=== PATIENT | male | born 1935 | race Caucasian/White ===

== ENCOUNTER → 2016-10-11 | Outpatient (CLI) | payer BC ==
[~2016-10-11] MED LIST: ACET-1256 PO; ASPI81TA28 PO; BIMA0.01 OP; BRIM0.1S OPR; DORZ1SOL6 OPB; FINA5TAB PO; HYDCR1CL TOP; IMD/2 PO; LDDP5 TD; LISI20TA3 PO; MELATAB2 PO; MIRT15TA PO; RMNER16 PO; SILO4CAP PO; TRAM-10 PO; WHEAPOW PO
[2016-10-11 12:07] LABS: BASO % 0.3 %; BASO ABS # 0.02 K/uL (0-0.2); COMPLETE YES; EOS % 1.7 %; IG% 0.6 %; LYMPH % 31.4 %; LYMPH ABS # 2.23 K/uL (1.2-3.4); MEAN CELL VOLUME 98.9 fL (80-100); MEAN CORPUSCULAR HEMOGLOBIN 33.6 pg (25-34); MEAN PLATELET VOLUME 10.6 fL (7.4-10.4); MONO % 9.1 %; NEUT % 56.9 %; PLATELET COUNT 305 K/uL (130-400); RED BLOOD COUNT 4.35 M/uL (4.7-6.1); WHITE BLOOD COUNT 7.11 K/uL (4.8-10.8)
[2016-10-11 12:39] LABS: BLOOD UREA NITROGEN 16 mg/dl (7-18); BUN/CREATININE RATIO 17.8 (10-20); CALCIUM 8.9 mg/dl (8.5-10.1); CARBON DIOXIDE 24 mmol/L (21-32); CHLORIDE 108 mmol/L (98-107); CREATININE 0.88 mg/dl (0.60-1.40); GLUCOSE 88 mg/dl (70-99); POTASSIUM 4.3 mmol/L (3.5-5.1); SODIUM 143 mmol/L (136-145)
== END ==
LOC: C.LABFOXAC 11:05
PROVIDERS: ATTEND Internal Medicine
DX: R41.82 Altered mental status, unspecified (principal)

== ENCOUNTER → 2016-10-14 | Outpatient (CLI) | payer BC ==
[2016-10-14 10:48] LABS: BASO % 0.5 %; BASO ABS # 0.03 K/uL (0-0.2); COMPLETE YES; EOS % 1.3 %; HEMATOCRIT 41.4 % (42-52); IG% 0.5 %; LYMPH % 28.9 %; LYMPH ABS # 1.79 K/uL (1.2-3.4); MEAN CELL VOLUME 99.5 fL (80-100); MEAN CORPUSCULAR HEMOGLOBIN 33.4 pg (25-34); MEAN CORPUSCULAR HGB CONC 33.6 g/dl (32-36); MEAN PLATELET VOLUME 10.5 fL (7.4-10.4); MONO % 8.9 %; NEUT % 59.9 %; PLATELET COUNT 288 K/uL (130-400); RED BLOOD COUNT 4.16 M/uL (4.7-6.1); WHITE BLOOD COUNT 6.19 K/uL (4.8-10.8)
[2016-10-14 11:04] LABS: BLOOD UREA NITROGEN 11 mg/dl (7-18); BUN/CREATININE RATIO 12.1 (10-20); CARBON DIOXIDE 27 mmol/L (21-32); CHLORIDE 108 mmol/L (98-107); CREATININE 0.94 mg/dl (0.60-1.40); GLUCOSE 88 mg/dl (70-99); SODIUM 143 mmol/L (136-145)
[2016-10-14 11:18] LABS: CALCIUM 9.1 mg/dl (8.5-10.1)
== END ==
LOC: C.LABFOXAC 09:00
PROVIDERS: ATTEND Internal Medicine
DX: R41.82 Altered mental status, unspecified (principal)

== ENCOUNTER → 2016-10-30 | Outpatient (CLI) | payer BC | END | disposition home or self-care (01) | LOC: C.LABFOXAC 12:34 | PROVIDERS: ATTEND Nurse Practitioner Family | DX: R19.7 Diarrhea, unspecified (principal) ==

== ENCOUNTER → 2016-11-08 | Outpatient (CLI) | payer BC | LOC: C.LABFOXAC 15:52 | PROVIDERS: ATTEND Internal Medicine | DX: A04.7 Enterocolitis due to Clostridium difficile (principal) ==

== ENCOUNTER → 2016-12-23 | Outpatient (CLI) | payer BC ==
[2016-12-23 13:21] LABS: BASO % 0.2 %; BASO ABS # 0.02 K/uL (0-0.2); COMPLETE YES; EOS % 0.1 %; HEMATOCRIT 46.1 % (42-52); IG% 0.4 %; LYMPH % 9.1 %; MEAN CELL VOLUME 97.3 fL (80-100); MEAN CORPUSCULAR HEMOGLOBIN 31.6 pg (25-34); MEAN CORPUSCULAR HGB CONC 32.5 g/dl (32-36); MEAN PLATELET VOLUME 10.9 fL (7.4-10.4); MONO % 6.7 %; NEUT % 83.5 %; PLATELET COUNT 275 K/uL (130-400); RED BLOOD COUNT 4.74 M/uL (4.7-6.1); WHITE BLOOD COUNT 12.08 K/uL (4.8-10.8)
[2016-12-23 13:34] LABS: BLOOD UREA NITROGEN 15 mg/dl (7-18); BUN/CREATININE RATIO 15.3 (10-20); CALCIUM 9.3 mg/dl (8.5-10.1); CARBON DIOXIDE 26 mmol/L (21-32); CHLORIDE 108 mmol/L (98-107); GLUCOSE 99 mg/dl (70-99); POTASSIUM 3.7 mmol/L (3.5-5.1); SODIUM 141 mmol/L (136-145)
== END ==
LOC: C.LABFOXAC 12:43
PROVIDERS: ATTEND Internal Medicine
DX: R50.9 Fever, unspecified (principal)

== ENCOUNTER → 2017-01-01 | Outpatient (CLI) | payer BC ==
[2017-01-01 10:19] LABS: BASO % 0.8 %; BASO ABS # 0.07 K/uL (0-0.2); COMPLETE YES; EOS % 2.5 %; HEMATOCRIT 42.9 % (42-52); IG% 1.5 %; LYMPH % 30.5 %; LYMPH ABS # 2.76 K/uL (1.2-3.4); MEAN CELL VOLUME 94.7 fL (80-100); MEAN CORPUSCULAR HEMOGLOBIN 33.1 pg (25-34); MEAN PLATELET VOLUME 10.3 fL (7.4-10.4); MONO % 7.4 %; NEUT % 57.3 %; PLATELET COUNT 364 K/uL (130-400); RED BLOOD COUNT 4.53 M/uL (4.7-6.1); WHITE BLOOD COUNT 9.06 K/uL (4.8-10.8)
[2017-01-01 10:23] LABS: BLOOD UREA NITROGEN 17 mg/dl (7-18); CALCIUM 9.1 mg/dl (8.5-10.1); CARBON DIOXIDE 22 mmol/L (21-32); CHLORIDE 109 mmol/L (98-107); GLUCOSE 108 mg/dl (70-99); POTASSIUM 4.4 mmol/L (3.5-5.1); SODIUM 137 mmol/L (136-145)
[2017-01-01 10:26] LABS: ALB/GLOB RATIO 1.1 (0.9-2); ALKALINE PHOSPHATASE 78 U/L (45-117); ALT/SGPT 25 U/L (12-78); AST/SGOT 19 U/L (15-37)
== END ==
LOC: C.LABFOXAC 09:27
PROVIDERS: ATTEND Internal Medicine
DX: R41.82 Altered mental status, unspecified (principal)

== ENCOUNTER 2017-02-02 14:48 | Inpatient (IN) | payer BC, OTHER ==
[~2017-02-02] VITALS: Ht 180.3 cm; Wt 104.3 kg
[~2017-02-02 14:48] MED LIST changes: -ACET-1256 PO; -BRIM0.1S OPR; -HYDCR1CL TOP; -IMD/2 PO; -LDDP5 TD; -MELATAB2 PO; -MIRT15TA PO; -TRAM-10 PO; -WHEAPOW PO
[2017-02-02] MEDS ORDERED: SODIUM CHLORIDE 0.9% 500ML 500 ML IV STA (15:03)
[2017-02-02] MEDS ORDERED: MoRPHine SULFATE 4 MG/ML 1 ML CARP\\VIAL IV STA (15:03)
[2017-02-02] MEDS ORDERED: LIDOCAINE/EPINEPH/TETRACAINE 1 EA SYR EXT STA (15:03)
--- NOTE | 2017-02-02 15:07 | EMERGENCY ROOM VISIT NOTE ---
History Report prepared by Barbara: Felipe Salmon Under the Supervision of: Dr. Kamran Romeo M.D. First contact with patient: 14:49 Chief Complaint: FALL Stated Complaint: FALL History of Present Illness The patient is an 81 year old white male with a past medical history of dementia and aphasia who presents to the ED with a cc of a fall that occurred earlier today. This history is limited secondary to the patient's dementia. Positive favoring of the abdomen. The patient's fall was unwitnessed and the staff is unsure how long he was down. Per the , he has never had a stroke. They are trying to transition him to a wheelchair because he at baseline he has unsteady gait. Source of History: patient, spouse/significant other, EMS History Limited By: dementia Onset: earlier today Position: other (global) Symptom Intensity: mild Quality: other (Fall) Timing: constant Review of Systems See HPI for pertinent positives and negatives. A total of ten systems were reviewed and were otherwise negative. Past Medical & Surgical Medical Problems: (1) Dementia (2) SIRS (systemic inflammatory response syndrome) (3) UTI (urinary tract infection) Family History Patient reports no known family medical history. Social History Smoking Status: Never Smoker Drug Use: none Marital Status: Occupation Status: retired, disabled Current/Historical Medications Scheduled Acetaminophen (Tylenol), 500 MG PO QID Bimatoprost (Lumigan), 1 DROPS OP HS Brimonidine Tartrate (Alphagan P Oph), 1 DROP OPR BID Dorzolamide Hcl-Timolol Maleat (Cosopt Oph), 1 DROPS OPB BID Loperamide Hcl (Imodium), 2 MG PO DIRECTED Melatonin (Melatonin Maximum Strengt), 5 MG PO HS Mirtazapine (Remeron), 15 MG PO HS Tramadol (Ultram), 25 MG PO BID Wheat Dextrin (Benefiber Drink Mix), 2 TSP PO DAILY Scheduled PRN Hydrocortisone 1% (Hydrocortisone 1%), 1 APPLN TOP BID PRN for RASH Allergies Coded Allergies: No Known Allergies (Unverified , 09/29/15) Physical Exam Vital Signs Date Time Temp Pulse Resp B/P (MAP) Pulse Ox O2 Delivery O2 Flow Rate FiO2 02/02/17 17:00 64 18 143/65 98 Room Air 02/02/17 15:02 36.6 56 18 127/60 100 Room Air Physical Exam GENERAL: Awake, alert, well-appearing, NAD HENT: 2 cm extraoral laceration in the middle of the lip. Small laceration to the intraoral area. No septal hematoma. Trace dried blood in the nares. EYES: Normal conjunctiva. Sclera non-icteric. NECK: Supple. No nuchal rigidity. FROM. RESPIRATORY: CTAB, no rhonchi, wheezing, crackles CARDIAC: RRR, no MRG ABDOMEN: Soft, NTND, BS+ MSK: No chest wall TTP, no LE edema. No obvious trauma to the extremities, chest , abdomen, or pelvis. NEURO: Patient has dementia. Baseline unsteady gait. Moves bilateral UE's. Sensation to the LE's. SKIN: No rash or jaundice noted. Medical Decision & Procedures ER Provider Diagnostic Interpretation: Radiology results as stated below per my review and radiologist interpretation: HEAD WITHOUT CONTRAST (CT) CLINICAL HISTORY: 81 years-old Male with s/p fall; ?syncope, 81mg ASA, dementia, . Acute head injury status post fall. TECHNIQUE: Multiple axial CT images of the head were obtained without contrast. A dose lowering technique was utilized adhering to the principles of ALARA. COMPARISON: CT head 09/29/2015. FINDINGS: No acute intracranial hemorrhage, midline shift, mass, large territorial ischemia or abnormal extra-axial collection. There is moderate atrophy with ex vacuo ventriculomegaly. Background chronic microvascular ischemic changes. There are senescent calcifications of the left lentiform nucleus. The calvarium is intact. The mastoid air cells, and middle ear cavities are clear. Mild polypoid mucosal thickening of the inferior left maxillary sinus, partially imaged. IMPRESSION: 1. No acute intracranial abnormality. 2. Senescent changes as above. 3. Mild left maxillary sinus disease is partially imaged. The above report was generated using voice recognition software. It may contain grammatical, syntax or spelling errors. Electronically signed by: Gibran Mary M.D. 02/02/2017 4:31 PM Dictated Date/Time: 02/02/2017 4:28 PM CHEST ONE VIEW PORTABLE HISTORY: 81 years-old Male s/p fall; ?syncope acute fall with syncope. COMPARISON: Chest radiograph 09/29/2015 TECHNIQUE: Semierect AP view of the chest FINDINGS: Cardiac silhouette is upper limits of normal. There is no pneumothorax or pleural effusion. Patchy bibasilar opacities are noted suggesting atelectasis. There is mild right hemidiaphragmatic elevation. There is atherosclerosis of the aorta. Chronic blunting of the costophrenic angles is noted likely secondary to scarring. The bones are grossly intact. Degenerative changes involve the shoulders bilaterally. IMPRESSION: Patchy bibasilar opacities suggest atelectasis. No acute cardiopulmonary process is otherwise identified. The above report was generated using voice recognition software. It may contain grammatical, syntax or spelling errors. Electronically signed by: Gibran Mary M.D. 02/02/2017 3:44 PM Dictated Date/Time: 02/02/2017 3:43 PM CERVICAL SPINE W/O CLINICAL HISTORY: 81 years-old Male with s/p fall; ?syncope, 81mg ASA, dementia, . Acute syncopal event with neck trauma. COMPARISON: CT head and maxillofacial of same day. TECHNIQUE: Multiple axial CT images of the cervical spine were obtained without contrast. A dose lowering technique was utilized adhering to the principles of ALARA. FINDINGS: The bones are mildly demineralized. Advanced degenerative changes are seen at the C1-C2 articulation anteriorly. No acute cervical spine fracture or subluxation is identified. Mastoid air cells and middle ear cavities are clear. Multilevel advanced facet arthropathy and endplate spurring is noted. There are large posterior disc osteophyte complex formations noted at the C5-C6 and C6-C7 levels. At C5-C6 there is moderate central canal and severe bilateral foraminal narrowing. At C6-C7 there is mild central canal, and moderate bilateral foraminal stenosis. The thyroid appears heterogeneous and multinodular. Lung apices are clear. There is mild upper scrotal plaquing of the cerebral vasculature. Mild left maxillary sinus disease. Periapical cyst formation of right maxillary molars. IMPRESSION: 1. No acute cervical spine fracture or subluxation identified. 2. Multilevel severe facet arthropathy noted with large posterior disc osteophyte complex formations at C5-C6 and C6-C7 as above. 3. Right-sided odontogenic disease as above. The above report was generated using voice recognition software. It may contain grammatical, syntax or spelling errors. Electronically signed by: Gibran Mary M.D. 02/02/2017 4:49 PM Dictated Date/Time: 02/02/2017 4:31 PM ABD/PELVIS IV CONTRAST ONLY HISTORY: 81 years-old Male s/p fall; ?syncope, 81mg ASA, favors abdomen when palp acute generalized abdominal pain status post fall with syncopal event. COMPARISON: None available. TECHNIQUE: Multiple axial CT images of the abdomen and pelvis were obtained following the intravenous administration of 116 mL Optiray 320. A dose lowering technique was used consistent with the principals of ALARA. FINDINGS: Study is moderately limited secondary to motion and positioning of the patient's arms. Trace left pleural effusion. Mild dependent left basilar consolidation suggest atelectasis or pneumonia. No pneumoperitoneum. Imaged inferior cardiac chambers are mildly enlarged with coronary arterial calcifications noted. There are multiple circumscribed low attenuating lesions about the liver, largest of which measures 1.6 cm and the left hepatic lobe are nonspecific and suggests cysts. Somewhat linear low attenuating lesion of the posterior right hepatic lobe likely secondary to a cyst with associated motion artifact. Spleen and adrenal glands are within normal limits. Gallbladder is unremarkable. There is moderate diffuse pancreatic atrophy. Kidneys, ureters are unremarkable. The prostate is enlarged with trabeculation of the urinary bladder costello suggesting sequela of chronic bladder outlet obstruction. Prostate measures over 6 mm transversely. Small left hydrocele is noted with apparent left-sided varicocele and fat filled left inguinal hernia. Since of atherosclerosis of the abdominal aorta. No bulky retroperitoneal adenopathy identified. There is no bowel obstruction or focal bowel wall thickening identified. The appendix is not clearly seen. No secondary evidence of acute appendicitis. Soft tissues are unremarkable. The bones are mildly demineralized. Acute mildly displaced fractures are seen within the lateral aspects of the left ninth, 10th and 11th ribs. No compression deformity identified. Severe multilevel facet arthropathy of the lower lumbar spine. IMPRESSION: 1. Acute minimally displaced fractures of the left 9th, 10th and 11th ribs without evidence of acute solid organ injury. No pneumoperitoneum or hemoperitoneum identified. 2. Small left pleural effusion with subsegmental left lower lobe atelectasis or pneumonia. 3. Additional incidental findings as above include prostatomegaly with evidence of chronic bladder outlet obstruction, left hydrocele, left inguinal hernia with probable left varicocele. 4. Multiple low attenuating circumscribed lesions of the liver suggest cysts however are indeterminate on this single phase study. 5. Limited study as above. The above report was generated using voice recognition software. It may contain grammatical, syntax or spelling errors. Electronically signed by: Gibran Mary M.D. 02/02/2017 4:44 PM Dictated Date/Time: 02/02/2017 4:35 PM FACIAL BONES-MXILLOFAC WITHOUT CLINICAL HISTORY: 81 years-old Male presenting with intraoral lac, pain, r/o dental frx or facial frx. Acute intraoral laceration with concern for facial bone or dental fracture. COMPARISON STUDY: CT head and cervical spine of same day TECHNIQUE: High-resolution CT scan of the facial bones is performed. Images are reviewed in the axial, sagittal, and coronal planes. IV contrast was not administered for this examination. A dose lowering technique was utilized adhering to the principles of ALARA. CT DOSE: 1088.91 mGy.cm FINDINGS: Large periapical cysts are noted involving several teeth, notably present within the right second maxillary molar and also within the third right mandibular molar and also within the right mandibular lateral incisor as seen on image 399 of series 5 with adjacent mild cortical erosion. No acute dental fracture identified. Mastoid air cells and middle ear cavities are clear. Foci of air seen within the cavernous sinus and right mandibular tissues on image 62 of series 4. No acute facial bone fracture or dislocation is identified. Mild maxillary and ethmoid sinus disease is noted. Multilevel severe facet arthropathy of the cervical spine. Evaluation of the soft tissues demonstrates soft tissue swelling with subcutaneous emphysema in the premandibular tissues. No opaque foreign body. There is extensive atherosclerotic plaquing of the carotid bulbs. Multinodular goiter. No pneumothorax. IMPRESSION: 1. Soft tissue swelling and laceration of the premental soft tissues. No opaque foreign body, acute facial bone or dental fracture identified. 2. Multifocal odontogenic disease as detailed above with multiple large periapical cysts with areas of adjacent cortical erosion. 3. Air within the cavernous sinus and right mandibular tissues suggests iatrogenic venous air. 4. Multilevel degenerative changes of the cervical spine. The above report was generated using voice recognition software. It may contain grammatical, syntax or spelling errors. Electronically signed by: Gibran Mary M.D. 02/02/2017 4:57 PM Dictated Date/Time: 02/02/2017 4:50 PM Laboratory Results 02/02/17 15:15 Red Blood Count 4.27, Mean Corpuscular Volume 97.0, Mean Corpuscular Hemoglobin 32.6, Mean Corpuscular Hemoglobin Concent 33.6, Mean Platelet Volume 10.4, Neutrophils (%) (Auto) 67.7, Lymphocytes (%) (Auto) 23.9, Monocytes (%) (Auto) 6.1, Eosinophils (%) (Auto) 1.5, Basophils (%) (Auto) 0.2, Neutrophils # (Auto) 5.44, Lymphocytes # (Auto) 1.92, Monocytes # (Auto) 0.49, Eosinophils # (Auto) 0.12, Basophils # (Auto) 0.02 02/02/17 15:15 Test 02/02/17 15:03 02/02/17 15:15 White Blood Count 8.04 K/uL (4.8-10.8) Red Blood Count 4.27 M/uL (4.7-6.1) Hemoglobin 13.9 g/dL (14.0-18.0) Hematocrit 41.4 % (42-52) Mean Corpuscular Volume 97.0 fL (80-100) Mean Corpuscular Hemoglobin 32.6 pg (25-34) Mean Corpuscular Hemoglobin Concent 33.6 g/dl (32-36) Platelet Count 265 K/uL (130-400) Mean Platelet Volume 10.4 fL (7.4-10.4) Neutrophils (%) (Auto) 67.7 % Lymphocytes (%) (Auto) 23.9 % Monocytes (%) (Auto) 6.1 % Eosinophils (%) (Auto) 1.5 % Basophils (%) (Auto) 0.2 % Neutrophils # (Auto) 5.44 K/uL (1.4-6.5) Lymphocytes # (Auto) 1.92 K/uL (1.2-3.4) Monocytes # (Auto) 0.49 K/uL (0.11-0.59) Eosinophils # (Auto) 0.12 K/uL (0-0.5) Basophils # (Auto) 0.02 K/uL (0-0.2) RDW Standard Deviation 48.7 fL (36.4-46.3) RDW Coefficient of Variation 13.7 % (11.5-14.5) Immature Granulocyte % (Auto) 0.6 % Immature Granulocyte # (Auto) 0.05 K/uL (0.00-0.02) Prothrombin Time 12.0 SECONDS (9.0-12.0) Prothromb Time International Ratio 1.1 (0.9-1.1) Activated Partial Thromboplast Time 26.9 SECONDS (21.0-31.0) Partial Thromboplastin Ratio 1.0 Anion Gap 8.0 mmol/L (3-11) Est Creatinine Clear Calc Drug Dose 62.5 ml/min Estimated GFR () 71.6 Estimated GFR (Non- 61.8 BUN/Creatinine Ratio 13.1 (10-20) Calcium Level 8.9 mg/dl (8.5-10.1) Troponin I < 0.015 ng/ml (0-0.045) Laboratory results reviewed by me Medications Administered Medications (Trade) Dose Ordered Sig/Aj Route Start Time Stop Time Status Last Admin Dose Admin Sodium Chloride 500 ml @ 500 mls/hr Q1H STAT IV 02/02/17 15:03 02/02/17 16:02 DC 02/02/17 15:22 500 MLS/HR Morphine Sulfate (MoRPHine SULFATE INJ) 4 mg NOW STAT IV 02/02/17 15:03 02/02/17 15:05 DC 02/02/17 15:26 4 MG Tetracaine/ Epinephrine/ Lidocaine (L.e.t. Gel 4%/ 1:100/0.5%) 1 ea NOW STAT EXT 02/02/17 15:03 02/02/17 15:05 DC 02/02/17 15:22 1 EA Diphtheria/ Pertussis/Tetanus Vacc (Adacel Inj) 0.5 ml ONCE ONCE IM. 02/02/17 15:15 02/02/17 15:16 DC 02/02/17 15:27 0.5 ML Procedure Location: Through the dry cory, and the wet cory Total length: 3 cm Complexity: simple Verbal consent was obtained after the risks and benefits were explained, including but not limited to bleeding, scarring, infection, pain, and bone/joint /nerve damage. At this time, the risks of the procedure are less than the risks of NOT performing the procedure. A time out was taken and the correct patient and site identified. The skin was prepped with betadine. The target area was anesthetized with LET gel. Copious irrigation was performed using normal saline. The skin was re-prepped with betadine and a sterile field set. The wound was explored for foreign bodies and none found. Examination revealed no injury to deep structures such as tendons, bone, or significant blood vessels. Debridement was not performed. The wound edges were approximated using 5, 6-0 fast gut sutures, 3 on the outside, 2 on the inside. Hemostasis and excellent approximation was achieved. Antibacterial ointment and a sterile dressing applied. Detailed wound care instructions and signs and symptoms of infection reviewed with the patient. No complications and the patient tolerated the procedure well. ECG Indication: other (Trauma) Rate (beats per minute): 58 Rhythm: sinus bradycardia Findings: other (Normal intervals, normal axis, no STS changes or t-wave inversions) ED Course 1449: The patient was evaluated in room C9. A complete history and physical exam was performed. 1625: I performed a laceration repair procedure at this time. Please see the procedure note for more information. 1703: Upon reexamination, the patient was resting. I discussed the test results and treatment plan with Dr. Chop[place] of [facility] [place] The patient will be evaluated for further management. Medical Decision Differential diagnosis: Etiologies such as fracture, dislocation, intra-abdominal, pneumothorax, intrathoracic , intracranial, neurologic, as well as other traumatic pathologies were entertained. The patient is an 81 year old white male with a past medical history of dementia and aphasia who presents to the ED with a cc of a fall that occurred earlier today. This history is limited secondary to the patient's dementia. Positive favoring of the abdomen. Patient was seen and evaluated at the bedside. History was limited given the prior history of CVA and dementia and the patient. Patient apparently at baseline per nursing and had a discussion with EMS. Patient does have some mild bleeding to the nares as well as lip with a small laceration. Patient appears to have some abdominal pain. Patient did have blood work, EKG, troponin , UA, and CTs completed along with plain films of the chest. Patient chest x- ray negative. EKG normal limits. Troponin negative. Patient's blood work fairly unremarkable. Patient does suffer from incontinence and appeared at the bedside did not want a cath UA. Patient's CT of the head, C-spine, face were negative. Patient CT abdomen pelvis was negative for acute intra- abdominal abnormality. Patient was noted to have some mildly displaced ninth 10th and 11th rib fractures. Bili pleural effusion with this was not read is hemo thorax. No real effusion or pneumothorax seen on the plain chest film. I did discuss the case with thoracic surgery who agreed to see the patient the morning. Given the patient's demented nature, the concern for adequate pain control, and respiratory status; I spoke with the hospitalist who agreed to admit the patient. Medication Reconcilliation Current Medication List: was personally reviewed by me Blood Pressure Screening Patient's blood pressure: Elevated blood pressure Blood pressure disposition: Elevated BP felt to be situational Consults Time Called: 1700 Consulting Physician: Keysha Bush Returned Call: 1703 Discussed the patient's case. The patient will be evaluated for further treatment and disposition. Impression Primary Impression: Fall Additional Impression: Rib fractures Scribe Attestation The scribe's documentation has been prepared under my direction and personally reviewed by me in its entirety. I confirm that the note above accurately reflects all work, treatment, procedures, and medical decision making performed by me. Departure Information Dispostion Being Evaluated By Hospitalist Referrals Franklin Mott (PCP) Patient Instructions My [facility] Problem Qualifiers Primary Impression: Fall Encounter type: initial encounter Qualified Codes: W19.XXXA - Unspecified fall, initial encounter Additional Impression: Rib fractures Encounter type: initial encounter Rib fracture type: multiple ribs Fracture type: closed Laterality: left Qualified Codes: S22.42XA - Multiple fractures of ribs, left side, initial encounter for closed fracture
[2017-02-02] MEDS ORDERED: DIPHTHERIA/TETANUS/PERTUSSIS 0.5 ML SYR/VIAL IM. ONE (15:15)
[2017-02-02 15:38] LABS: INR 1.1 (0.9-1.1)
--- NOTE | 2017-02-02 15:46 | DIAGNOSTIC IMAGING REPORT ---
CHEST ONE VIEW PORTABLE HISTORY: 81 years-old Male s/p fall; ?syncope acute fall with syncope. COMPARISON: Chest radiograph 09/29/2015 TECHNIQUE: Semierect AP view of the chest FINDINGS: Cardiac silhouette is upper limits of normal. There is no pneumothorax or pleural effusion. Patchy bibasilar opacities are noted suggesting atelectasis. There is mild right hemidiaphragmatic elevation. There is atherosclerosis of the aorta. Chronic blunting of the costophrenic angles is noted likely secondary to scarring. The bones are grossly intact. Degenerative changes involve the shoulders bilaterally. IMPRESSION: Patchy bibasilar opacities suggest atelectasis. No acute cardiopulmonary process is otherwise identified. The above report was generated using voice recognition software. It may contain grammatical, syntax or spelling errors. Electronically signed by: Gibran Mary M.D. 02/02/2017 3:44 PM Dictated Date/Time: 02/02/2017 3:43 PM
[2017-02-02] MEDS ORDERED: TRAM-10 PO (16:07)
[2017-02-02] MEDS ORDERED: MELATAB2 PO (16:07)
[2017-02-02] MEDS ORDERED: IMD/2 PO (16:07)
[2017-02-02] MEDS ORDERED: BRIM0.1S OPR (16:07)
[2017-02-02] MEDS ORDERED: HYDCR1CL TOP (16:07)
[2017-02-02] MEDS ORDERED: WHEAPOW PO (16:07)
[2017-02-02] MEDS ORDERED: ACET-1256 PO (16:07)
[2017-02-02] MEDS ORDERED: MIRT15TA PO (16:07)
[2017-02-02 16:09] LABS: BASO % 0.2 %; BASO ABS # 0.02 K/uL (0-0.2); COMPLETE YES; EOS % 1.5 %; HEMATOCRIT 41.4 % (42-52); IG% 0.6 %; LYMPH % 23.9 %; LYMPH ABS # 1.92 K/uL (1.2-3.4); MEAN CORPUSCULAR HEMOGLOBIN 32.6 pg (25-34); MEAN CORPUSCULAR HGB CONC 33.6 g/dl (32-36); MEAN PLATELET VOLUME 10.4 fL (7.4-10.4); MONO % 6.1 %; NEUT % 67.7 %; PLATELET COUNT 265 K/uL (130-400); RED BLOOD COUNT 4.27 M/uL (4.7-6.1); WHITE BLOOD COUNT 8.04 K/uL (4.8-10.8)
[2017-02-02 16:18] LABS: BUN/CREATININE RATIO 13.1 (10-20); CALCIUM 8.9 mg/dl (8.5-10.1); CREATININE 1.1 mg/dl (0.60-1.40); POTASSIUM 4.4 mmol/L (3.5-5.1)
[2017-02-02] MEDS ORDERED: OPTIRAY 320 IV PRN (16:30)
--- NOTE | 2017-02-02 16:32 | DIAGNOSTIC IMAGING REPORT ---
HEAD WITHOUT CONTRAST (CT) CLINICAL HISTORY: 81 years-old Male with s/p fall; ?syncope, 81mg ASA, dementia, . Acute head injury status post fall. TECHNIQUE: Multiple axial CT images of the head were obtained without contrast. A dose lowering technique was utilized adhering to the principles of ALARA. COMPARISON: CT head 09/29/2015. FINDINGS: No acute intracranial hemorrhage, midline shift, mass, large territorial ischemia or abnormal extra-axial collection. There is moderate atrophy with ex vacuo ventriculomegaly. Background chronic microvascular ischemic changes. There are senescent calcifications of the left lentiform nucleus. The calvarium is intact. The mastoid air cells, and middle ear cavities are clear. Mild polypoid mucosal thickening of the inferior left maxillary sinus, partially imaged. IMPRESSION: 1. No acute intracranial abnormality. 2. Senescent changes as above. 3. Mild left maxillary sinus disease is partially imaged. The above report was generated using voice recognition software. It may contain grammatical, syntax or spelling errors. Electronically signed by: Gibran Mary M.D. 02/02/2017 4:31 PM Dictated Date/Time: 02/02/2017 4:28 PM
--- NOTE | 2017-02-02 16:45 | DIAGNOSTIC IMAGING REPORT ---
ABD/PELVIS IV CONTRAST ONLY HISTORY: 81 years-old Male s/p fall; ?syncope, 81mg ASA, favors abdomen when palp acute generalized abdominal pain status post fall with syncopal event. COMPARISON: None available. TECHNIQUE: Multiple axial CT images of the abdomen and pelvis were obtained following the intravenous administration of 116 mL Optiray 320. A dose lowering technique was used consistent with the principals of ALARA. FINDINGS: Study is moderately limited secondary to motion and positioning of the patient's arms. Trace left pleural effusion. Mild dependent left basilar consolidation suggest atelectasis or pneumonia. No pneumoperitoneum. Imaged inferior cardiac chambers are mildly enlarged with coronary arterial calcifications noted. There are multiple circumscribed low attenuating lesions about the liver, largest of which measures 1.6 cm and the left hepatic lobe are nonspecific and suggests cysts. Somewhat linear low attenuating lesion of the posterior right hepatic lobe likely secondary to a cyst with associated motion artifact. Spleen and adrenal glands are within normal limits. Gallbladder is unremarkable. There is moderate diffuse pancreatic atrophy. Kidneys, ureters are unremarkable. The prostate is enlarged with trabeculation of the urinary bladder costello suggesting sequela of chronic bladder outlet obstruction. Prostate measures over 6 mm transversely. Small left hydrocele is noted with apparent left-sided varicocele and fat filled left inguinal hernia. Since of atherosclerosis of the abdominal aorta. No bulky retroperitoneal adenopathy identified. There is no bowel obstruction or focal bowel wall thickening identified. The appendix is not clearly seen. No secondary evidence of acute appendicitis. Soft tissues are unremarkable. The bones are mildly demineralized. Acute mildly displaced fractures are seen within the lateral aspects of the left ninth, 10th and 11th ribs. No compression deformity identified. Severe multilevel facet arthropathy of the lower lumbar spine. IMPRESSION: 1. Acute minimally displaced fractures of the left 9th, 10th and 11th ribs without evidence of acute solid organ injury. No pneumoperitoneum or hemoperitoneum identified. 2. Small left pleural effusion with subsegmental left lower lobe atelectasis or pneumonia. 3. Additional incidental findings as above include prostatomegaly with evidence of chronic bladder outlet obstruction, left hydrocele, left inguinal hernia with probable left varicocele. 4. Multiple low attenuating circumscribed lesions of the liver suggest cysts however are indeterminate on this single phase study. 5. Limited study as above. The above report was generated using voice recognition software. It may contain grammatical, syntax or spelling errors. Electronically signed by: Gibran Mary M.D. 02/02/2017 4:44 PM Dictated Date/Time: 02/02/2017 4:35 PM
--- NOTE | 2017-02-02 16:51 | DIAGNOSTIC IMAGING REPORT ---
CERVICAL SPINE W/O CLINICAL HISTORY: 81 years-old Male with s/p fall; ?syncope, 81mg ASA, dementia, . Acute syncopal event with neck trauma. COMPARISON: CT head and maxillofacial of same day. TECHNIQUE: Multiple axial CT images of the cervical spine were obtained without contrast. A dose lowering technique was utilized adhering to the principles of ALARA. FINDINGS: The bones are mildly demineralized. Advanced degenerative changes are seen at the C1-C2 articulation anteriorly. No acute cervical spine fracture or subluxation is identified. Mastoid air cells and middle ear cavities are clear. Multilevel advanced facet arthropathy and endplate spurring is noted. There are large posterior disc osteophyte complex formations noted at the C5-C6 and C6-C7 levels. At C5-C6 there is moderate central canal and severe bilateral foraminal narrowing. At C6-C7 there is mild central canal, and moderate bilateral foraminal stenosis. The thyroid appears heterogeneous and multinodular. Lung apices are clear. There is mild upper scrotal plaquing of the cerebral vasculature. Mild left maxillary sinus disease. Periapical cyst formation of right maxillary molars. IMPRESSION: 1. No acute cervical spine fracture or subluxation identified. 2. Multilevel severe facet arthropathy noted with large posterior disc osteophyte complex formations at C5-C6 and C6-C7 as above. 3. Right-sided odontogenic disease as above. The above report was generated using voice recognition software. It may contain grammatical, syntax or spelling errors. Electronically signed by: Gibran Mary M.D. 02/02/2017 4:49 PM Dictated Date/Time: 02/02/2017 4:31 PM
--- NOTE | 2017-02-02 16:59 | DIAGNOSTIC IMAGING REPORT ---
FACIAL BONES-MXILLOFAC WITHOUT CLINICAL HISTORY: 81 years-old Male presenting with intraoral lac, pain, r/o dental frx or facial frx. Acute intraoral laceration with concern for facial bone or dental fracture. COMPARISON STUDY: CT head and cervical spine of same day TECHNIQUE: High-resolution CT scan of the facial bones is performed. Images are reviewed in the axial, sagittal, and coronal planes. IV contrast was not administered for this examination. A dose lowering technique was utilized adhering to the principles of ALARA. CT DOSE: 1088.91 mGy.cm FINDINGS: Large periapical cysts are noted involving several teeth, notably present within the right second maxillary molar and also within the third right mandibular molar and also within the right mandibular lateral incisor as seen on image 399 of series 5 with adjacent mild cortical erosion. No acute dental fracture identified. Mastoid air cells and middle ear cavities are clear. Foci of air seen within the cavernous sinus and right mandibular tissues on image 62 of series 4. No acute facial bone fracture or dislocation is identified. Mild maxillary and ethmoid sinus disease is noted. Multilevel severe facet arthropathy of the cervical spine. Evaluation of the soft tissues demonstrates soft tissue swelling with subcutaneous emphysema in the premandibular tissues. No opaque foreign body. There is extensive atherosclerotic plaquing of the carotid bulbs. Multinodular goiter. No pneumothorax. IMPRESSION: 1. Soft tissue swelling and laceration of the premental soft tissues. No opaque foreign body, acute facial bone or dental fracture identified. 2. Multifocal odontogenic disease as detailed above with multiple large periapical cysts with areas of adjacent cortical erosion. 3. Air within the cavernous sinus and right mandibular tissues suggests iatrogenic venous air. 4. Multilevel degenerative changes of the cervical spine. The above report was generated using voice recognition software. It may contain grammatical, syntax or spelling errors. Electronically signed by: Gibran Mary M.D. 02/02/2017 4:57 PM Dictated Date/Time: 02/02/2017 4:50 PM
[2017-02-02] MEDS ORDERED: HYDROCORTISONE 1% CR 30 GM TUBE EXT PRN (18:00)
[2017-02-02] MEDS ORDERED: LOPERAMIDE HCL 2 MG CAP PO PRN (18:00)
[2017-02-02] MEDS ORDERED: ACETAMINOPHEN 325 MG TAB PO PRN (18:00)
--- NOTE | 2017-02-02 19:19 | History and Physical ---
History & Physical Date & Time of Service: Feb 02, 2017 at 19:02 Chief Complaint: FALL Primary Care Physician: Franklin Mott History of Present Illness Source: spouse, hospital records The patient is not able to contribute to his history of present illness due to his altered mental state. His reports that he has a history of severe dementia and aphasia. She reports that she was called by nursing staff there that he had an unwitnessed fall this morning. Past Medical/Surgical History Medical Problems: (1) Dementia Status: Chronic Family History Patient reports no known family medical history. Social History Smoking Status: Unknown if Ever Smoked Smokeless Tobacco Use: No Alcohol Use: none Drug Use: none Marital Status: Housing status: lives with significant other, fdc Occupational Status: retired, disabled Immunizations History of Influenza Vaccine: Unknown History of Tetanus Vaccine?: Unknown History of Pneumococcal: Unknown History of Hepatitis B Vaccine: Unknown Multi-Drug Resistant Organisms History of MDRO: No Allergies Coded Allergies: No Known Allergies (Unverified , 09/29/15) Home Medications Scheduled Acetaminophen (Tylenol), 500 MG PO QID Bimatoprost (Lumigan), 1 DROPS OP HS Brimonidine Tartrate (Alphagan P Oph), 1 DROP OPR BID Dorzolamide Hcl-Timolol Maleat (Cosopt Oph), 1 DROPS OPB BID Loperamide Hcl (Imodium), 2 MG PO DIRECTED Melatonin (Melatonin Maximum Strengt), 5 MG PO HS Mirtazapine (Remeron), 15 MG PO HS Tramadol (Ultram), 25 MG PO BID Wheat Dextrin (Benefiber Drink Mix), 2 TSP PO DAILY Scheduled PRN Hydrocortisone 1% (Hydrocortisone 1%), 1 APPLN TOP BID PRN for RASH Review of Systems The patient is unable to contribute to his review of systems due to altered mental state. His , who is present, reports that she was called by the nurses at [facility] that the patient had fallen, but this fall had not been witnessed. She reports that he's been in his usual state of poor health up to this time. Physical Exam Vital Signs Date Time Temp Pulse Resp B/P (MAP) Pulse Ox O2 Delivery O2 Flow Rate FiO2 02/02/17 18:56 78 18 169/70 96 Room Air 02/02/17 17:00 64 18 143/65 98 Room Air 02/02/17 15:02 36.6 56 18 127/60 100 Room Air The patient is nonresponsive, has dried blood on nares and lip, lying in bed , intermittently agitated, pulling at blood pressure cuff and lines, but otherwise in no acute distress. HEENT--PERRL, EOMI, mucous membranes and oropharynx dry. Blood as noted above. Neck--supple, no JVD or bruits, thyroid normal, trachea midline, no adenopathy. Heart--tachycardic and regular, no murmurs, rubs or gallops. Lungs--diminished throughout, no respiratory distress, no accessory muscle use. Abdomen--normal bowel sounds and soft, nontender and nondistended, no hernias or masses, no organomegaly. Extremities--no cyanosis, clubbing or edema. There are good distal pulses b/l. Dermatologic--normal skin turgor, normal color, warm and dry, no abnormal lymph nodes, no rash. Neurologic/rheumatologic--cranial nerves II through XII grossly intact, moves all extremities equally well. Psychiatric--nonresponsive, severe dementia. Diagnostics Laboratory Results Results Past 24 Hours Test 02/02/17 15:03 02/02/17 15:15 Range/Units White Blood Count 8.04 4.8-10.8 K/uL Red Blood Count 4.27 4.7-6.1 M/uL Hemoglobin 13.9 14.0-18.0 g/dL Hematocrit 41.4 42-52 % Mean Corpuscular Volume 97.0 80-100 fL Mean Corpuscular Hemoglobin 32.6 25-34 pg Mean Corpuscular Hemoglobin Concent 33.6 32-36 g/dl Platelet Count 265 130-400 K/uL Mean Platelet Volume 10.4 7.4-10.4 fL Neutrophils (%) (Auto) 67.7 % Lymphocytes (%) (Auto) 23.9 % Monocytes (%) (Auto) 6.1 % Eosinophils (%) (Auto) 1.5 % Basophils (%) (Auto) 0.2 % Neutrophils # (Auto) 5.44 1.4-6.5 K/uL Lymphocytes # (Auto) 1.92 1.2-3.4 K/uL Monocytes # (Auto) 0.49 0.11-0.59 K/uL Eosinophils # (Auto) 0.12 0-0.5 K/uL Basophils # (Auto) 0.02 0-0.2 K/uL RDW Standard Deviation 48.7 36.4-46.3 fL RDW Coefficient of Variation 13.7 11.5-14.5 % Immature Granulocyte % (Auto) 0.6 % Immature Granulocyte # (Auto) 0.05 0.00-0.02 K/uL Prothrombin Time 12.0 9.0-12.0 SECONDS Prothromb Time International Ratio 1.1 0.9-1.1 Activated Partial Thromboplast Time 26.9 21.0-31.0 SECONDS Partial Thromboplastin Ratio 1.0 Sodium Level 145 136-145 mmol/L Potassium Level 4.4 3.5-5.1 mmol/L Chloride Level 110 98-107 mmol/L Carbon Dioxide Level 27 21-32 mmol/L Anion Gap 8.0 3-11 mmol/L Blood Urea Nitrogen 14 7-18 mg/dl Creatinine 1.10 0.60-1.40 mg/dl Est Creatinine Clear Calc Drug Dose 62.5 ml/min Estimated GFR () 71.6 Estimated GFR (Non- 61.8 BUN/Creatinine Ratio 13.1 10-20 Random Glucose 119 70-99 mg/dl Calcium Level 8.9 8.5-10.1 mg/dl Troponin I < 0.015 0-0.045 ng/ml Diagnostic Radiology Patient Name: EKATERINA KEMP JR Unit Number: [id number] Dictated: 02/02/171627 Transcribed: 02/02/171627 JRElaine Printed Date/Time: [~ rep prt dt]/[~ rep prt tm] [~ rep ct labl] - [~ rep ct ivnm] [facility] Radiology Department [place], [place] [id number] Dictated: 02/02/171627 Transcribed: 02/02/171627 JRB Printed Date/Time: [~ rep prt dt]/[~ rep prt tm] [~ rep ct labl] - [~ rep ct ivnm] HEAD WITHOUT CONTRAST (CT) CLINICAL HISTORY: 81 years-old Male with s/p fall; ?syncope, 81mg ASA, dementia, . Acute head injury status post fall. TECHNIQUE: Multiple axial CT images of the head were obtained without contrast. A dose lowering technique was utilized adhering to the principles of ALARA. COMPARISON: CT head 09/29/2015. FINDINGS: No acute intracranial hemorrhage, midline shift, mass, large territorial ischemia or abnormal extra-axial collection. There is moderate atrophy with ex vacuo ventriculomegaly. Background chronic microvascular ischemic changes. There are senescent calcifications of the left lentiform nucleus. The calvarium is intact. The mastoid air cells, and middle ear cavities are clear. Mild polypoid mucosal thickening of the inferior left maxillary sinus, partially imaged. IMPRESSION: 1. No acute intracranial abnormality. 2. Senescent changes as above. 3. Mild left maxillary sinus disease is partially imaged. The above report was generated using voice recognition software. It may contain grammatical, syntax or spelling errors. Electronically signed by: Gibran Mary M.D. 02/02/2017 4:31 PM Dictated Date/Time: 02/02/2017 4:28 PM The status of this report is Signed. Draft = Not yet reviewed or approved by Radiologist. Signed = Reviewed and approved by Radiologist. <AttendingPhy></AttendingPhy> <FamilyPhy>[facility]</FamilyPhy> < PrimaryPhy>[facility]</PrimaryPhy> <UnitNumber>[id number]</UnitNumber> < VisitNumber>[id number]</VisitNumber> <PatientName>EKATERINA KEMP Adam BUENROSTRO</ PatientName> <DateOfBirth>1935</DateOfBirth> <Location>[facility]</Location> < ServiceDate>02/02/17</ServiceDate> <MNE>ESINDI</MNE> <OrderingPhy>Kamran Romeo M.D.</OrderingPhy> <OrderingPhyMNE>f rep ord dr mckeon</OrderingPhyMNE> < DictatingPhyMNE>f rep dict dr mckeon</DictatingPhyMNE> <CCListMNE>f rep ct zaidae</ CCListMNE> <AdmittingPhyMNE>f pt admit dr mckeon</AdmittingPhyMNE> <AttendingPhyMNE >f pt attend dr mckeon</AttendingPhyMNE> <ConsultingPhyMNE>f pt consult dr mckeon</ConsultingPhyMNE> <FamilyPhyMNE>f pt fam dr mckeon</FamilyPhyMNE> <OtherPhyMNE>f pt other dr mckeon</OtherPhyMNE> < PrimaryPhyMNE>f pt prim care dr mckeon</PrimaryPhyMNE> <ReferringPhyMNE>f pt referring dr mckeon</ReferringPhyMNE> Patient Name: EKATERINA KEMP JR Unit Number: [id number] Dictated: 02/02/171542 Transcribed: 02/02/171542 JRB Printed Date/Time: [~ rep prt dt]/[~ rep prt tm] [~ rep ct labl] - [~ rep ct ivnm] [facility] [place] [place] [address] Dictated: 02/02/171542 Transcribed: 02/02/171542 JRB Printed Date/Time: [~ rep prt dt]/[~ rep prt tm] [~ rep ct labl] - [~ rep ct ivnm] CHEST ONE VIEW PORTABLE HISTORY: 81 years-old Male s/p fall; ?syncope acute fall with syncope. COMPARISON: Chest radiograph 09/29/2015 TECHNIQUE: Semierect AP view of the chest FINDINGS: Cardiac silhouette is upper limits of normal. There is no pneumothorax or pleural effusion. Patchy bibasilar opacities are noted suggesting atelectasis. There is mild right hemidiaphragmatic elevation. There is atherosclerosis of the aorta. Chronic blunting of the costophrenic angles is noted likely secondary to scarring. The bones are grossly intact. Degenerative changes involve the shoulders bilaterally. IMPRESSION: Patchy bibasilar opacities suggest atelectasis. No acute cardiopulmonary process is otherwise identified. The above report was generated using voice recognition software. It may contain grammatical, syntax or spelling errors. Electronically signed by: Gibran Mary M.D. 02/02/2017 3:44 PM Dictated Date/Time: 02/02/2017 3:43 PM The status of this report is Signed. Draft = Not yet reviewed or approved by Radiologist. Signed = Reviewed and approved by Radiologist. <AttendingPhy></AttendingPhy> <FamilyPhy>Franklin Mott</FamilyPhy> < PrimaryPhy>Franklin Mott</PrimaryPhy> <UnitNumber>[id number]</UnitNumber> < VisitNumber>[id number]</VisitNumber> <PatientName>JUSTOEKTAERINA JR</ PatientName> <DateOfBirth>1935</DateOfBirth> <Location>[facility]</Location> < ServiceDate>02/02/17</ServiceDate> <MNE>ESINDI</MNE> <OrderingPhy>Kamran Romeo M.D.</OrderingPhy> <OrderingPhyMNE>f rep ord dr mckeon</OrderingPhyMNE> < DictatingPhyMNE>f rep dict dr mckeon</DictatingPhyMNE> <CCListMNE>f rep ct mne</ CCListMNE> <AdmittingPhyMNE>f pt admit dr mckeon</AdmittingPhyMNE> <AttendingPhyMNE >f pt attend dr mckeon</AttendingPhyMNE> <ConsultingPhyMNE>f pt consult dr mckeon</ConsultingPhyMNE> <FamilyPhyMNE>f pt fam dr mckeon</FamilyPhyMNE> <OtherPhyMNE>f pt other dr mckeon</OtherPhyMNE> < PrimaryPhyMNE>f pt prim care dr mckeon</PrimaryPhyMNE> <ReferringPhyMNE>f pt referring dr mckeon</ReferringPhyMNE> Patient Name: EKATERINA KEMP JR Unit Number: [id number] Dictated: 02/02/171630 Transcribed: 02/02/171630 JRB Printed Date/Time: [~ rep prt dt]/[~ rep prt tm] [~ rep ct labl] - [~ rep ct ivnm] [facility] [place] [address] Dictated: 02/02/171630 Transcribed: 02/02/171630 JRB Printed Date/Time: [~ rep prt dt]/[~ rep prt tm] [~ rep ct labl] - [~ rep ct ivnm] CERVICAL SPINE W/O CLINICAL HISTORY: 81 years-old Male with s/p fall; ?syncope, 81mg ASA, dementia, . Acute syncopal event with neck trauma. COMPARISON: CT head and maxillofacial of same day. TECHNIQUE: Multiple axial CT images of the cervical spine were obtained without contrast. A dose lowering technique was utilized adhering to the principles of ALARA. FINDINGS: The bones are mildly demineralized. Advanced degenerative changes are seen at the C1-C2 articulation anteriorly. No acute cervical spine fracture or subluxation is identified. Mastoid air cells and middle ear cavities are clear. Multilevel advanced facet arthropathy and endplate spurring is noted. There are large posterior disc osteophyte complex formations noted at the C5-C6 and C6-C7 levels. At C5-C6 there is moderate central canal and severe bilateral foraminal narrowing. At C6-C7 there is mild central canal, and moderate bilateral foraminal stenosis. The thyroid appears heterogeneous and multinodular. Lung apices are clear. There is mild upper scrotal plaquing of the cerebral vasculature. Mild left maxillary sinus disease. Periapical cyst formation of right maxillary molars. IMPRESSION: 1. No acute cervical spine fracture or subluxation identified. 2. Multilevel severe facet arthropathy noted with large posterior disc osteophyte complex formations at C5-C6 and C6-C7 as above. 3. Right-sided odontogenic disease as above. The above report was generated using voice recognition software. It may contain grammatical, syntax or spelling errors. Electronically signed by: Gibran Mary M.D. 02/02/2017 4:49 PM Dictated Date/Time: 02/02/2017 4:31 PM The status of this report is Signed. Draft = Not yet reviewed or approved by Radiologist. Signed = Reviewed and approved by Radiologist. <AttendingPhy></AttendingPhy> <FamilyPhy>[facility]</FamilyPhy> < PrimaryPhy>[facility]</PrimaryPhy> <UnitNumber>[id number]</UnitNumber> < VisitNumber>[id number]</VisitNumber> <PatientName>EKATERINA KEMP JR</ PatientName> <DateOfBirth>1935</DateOfBirth> <Location>[facility]</Location> < ServiceDate>02/02/17</ServiceDate> <MNE>ESINDI</MNE> <OrderingPhy>Kamran Romeo M.D.</OrderingPhy> <OrderingPhyMNE>f rep ord dr mckeon</OrderingPhyMNE> < DictatingPhyMNE>f rep dict dr mckeon</DictatingPhyMNE> <CCListMNE>f rep ct mne</ CCListMNE> <AdmittingPhyMNE>f pt admit dr mckeon</AdmittingPhyMNE> <AttendingPhyMNE >f pt attend dr mckeon</AttendingPhyMNE> <ConsultingPhyMNE>f pt consult dr mckeon</ConsultingPhyMNE> <FamilyPhyMNE>f pt fam dr mckeon</FamilyPhyMNE> <OtherPhyMNE>f pt other dr mckeon</OtherPhyMNE> < PrimaryPhyMNE>f pt prim care dr mckeon</PrimaryPhyMNE> <ReferringPhyMNE>f pt referring dr mckeon</ReferringPhyMNE> Patient Name: EKATERINA KEMP JR Unit Number: [id number] Dictated: 02/02/171634 Transcribed: 02/02/171634 JR Printed Date/Time: [~ rep prt dt]/[~ rep prt tm] [~ rep ct labl] - [~ rep ct ivnm] [facility] [place] [place] [address] Dictated: 02/02/171634 Transcribed: 02/02/171634 JR Printed Date/Time: [~ rep prt dt]/[~ rep prt tm] [~ rep ct labl] - [~ rep ct ivnm] ABD/PELVIS IV CONTRAST ONLY HISTORY: 81 years-old Male s/p fall; ?syncope, 81mg ASA, favors abdomen when palp acute generalized abdominal pain status post fall with syncopal event. COMPARISON: None available. TECHNIQUE: Multiple axial CT images of the abdomen and pelvis were obtained following the intravenous administration of 116 mL Optiray 320. A dose lowering technique was used consistent with the principals of ALARA. FINDINGS: Study is moderately limited secondary to motion and positioning of the patient's arms. Trace left pleural effusion. Mild dependent left basilar consolidation suggest atelectasis or pneumonia. No pneumoperitoneum. Imaged inferior cardiac chambers are mildly enlarged with coronary arterial calcifications noted. There are multiple circumscribed low attenuating lesions about the liver, largest of which measures 1.6 cm and the left hepatic lobe are nonspecific and suggests cysts. Somewhat linear low attenuating lesion of the posterior right hepatic lobe likely secondary to a cyst with associated motion artifact. Spleen and adrenal glands are within normal limits. Gallbladder is unremarkable. There is moderate diffuse pancreatic atrophy. Kidneys, ureters are unremarkable. The prostate is enlarged with trabeculation of the urinary bladder costello suggesting sequela of chronic bladder outlet obstruction. Prostate measures over 6 mm transversely. Small left hydrocele is noted with apparent left-sided varicocele and fat filled left inguinal hernia. Since of atherosclerosis of the abdominal aorta. No bulky retroperitoneal adenopathy identified. There is no bowel obstruction or focal bowel wall thickening identified. The appendix is not clearly seen. No secondary evidence of acute appendicitis. Soft tissues are unremarkable. The bones are mildly demineralized. Acute mildly displaced fractures are seen within the lateral aspects of the left ninth, 10th and 11th ribs. No compression deformity identified. Severe multilevel facet arthropathy of the lower lumbar spine. IMPRESSION: 1. Acute minimally displaced fractures of the left 9th, 10th and 11th ribs without evidence of acute solid organ injury. No pneumoperitoneum or hemoperitoneum identified. 2. Small left pleural effusion with subsegmental left lower lobe atelectasis or pneumonia. 3. Additional incidental findings as above include prostatomegaly with evidence of chronic bladder outlet obstruction, left hydrocele, left inguinal hernia with probable left varicocele. 4. Multiple low attenuating circumscribed lesions of the liver suggest cysts however are indeterminate on this single phase study. 5. Limited study as above. The above report was generated using voice recognition software. It may contain grammatical, syntax or spelling errors. Electronically signed by: Gibran Mary M.D. 02/02/2017 4:44 PM Dictated Date/Time: 02/02/2017 4:35 PM The status of this report is Signed. Draft = Not yet reviewed or approved by Radiologist. Signed = Reviewed and approved by Radiologist. <AttendingPhy></AttendingPhy> <[facility]</Family[facility]> < PrimaryPhy>[facility]</PrimaryPhy> <UnitNumber>[id number]</UnitNumber> < VisitNumber>[id number]</VisitNumber> <PatientName>EKATERINA KEMP </ PatientName> <DateOfBirth>1935</DateOfBirth> <Location>[facility]</Location> < ServiceDate>02/02/17</ServiceDate> <MNE>ESINDI</MNE> <OrderingPhy>Kamran Romeo M.D.</OrderingPhy> <OrderingPhyMNE>f rep ord dr mckeon</OrderingPhyMNE> < DictatingPhyMNE>f rep dict dr mckeon</DictatingPhyMNE> <CCListMNE>f rep ct mne</ CCListMNE> <AdmittingPhyMNE>f pt admit dr mckeon</AdmittingPhyMNE> <AttendingPhyMNE >f pt attend dr mckeon</AttendingPhyMNE> <ConsultingPhyMNE>f pt consult dr mckeon</ConsultingPhyMNE> <FamilyPhyMNE>f pt fam dr mckeon</FamilyPhyMNE> <OtherPhyMNE>f pt other dr mckeon</OtherPhyMNE> < PrimaryPhyMNE>f pt prim care dr mckeon</PrimaryPhyMNE> <ReferringPhyMNE>f pt referring dr mckeon</ReferringPhyMNE> Patient Name: EKATERINA KEMP JR Unit Number: [id number] Dictated: 02/02/171649 Transcribed: 02/02/171649 JRB Printed Date/Time: [~ rep prt dt]/[~ rep prt tm] [~ rep ct labl] - [~ rep ct ivnm] [facility] [place] [address] Dictated: 02/02/171649 Transcribed: 02/02/171649 JRB Printed Date/Time: [~ rep prt dt]/[~ rep prt tm] [~ rep ct labl] - [~ rep ct ivnm] [~ rep ct add3]] FACIAL BONES-MXILLOFAC WITHOUT CLINICAL HISTORY: 81 years-old Male presenting with intraoral lac, pain, r/o dental frx or facial frx. Acute intraoral laceration with concern for facial bone or dental fracture. COMPARISON STUDY: CT head and cervical spine of same day TECHNIQUE: High-resolution CT scan of the facial bones is performed. Images are reviewed in the axial, sagittal, and coronal planes. IV contrast was not administered for this examination. A dose lowering technique was utilized adhering to the principles of ALARA. CT DOSE: 1088.91 mGy.cm FINDINGS: Large periapical cysts are noted involving several teeth, notably present within the right second maxillary molar and also within the third right mandibular molar and also within the right mandibular lateral incisor as seen on image 399 of series 5 with adjacent mild cortical erosion. No acute dental fracture identified. Mastoid air cells and middle ear cavities are clear. Foci of air seen within the cavernous sinus and right mandibular tissues on image 62 of series 4. No acute facial bone fracture or dislocation is identified. Mild maxillary and ethmoid sinus disease is noted. Multilevel severe facet arthropathy of the cervical spine. Evaluation of the soft tissues demonstrates soft tissue swelling with subcutaneous emphysema in the premandibular tissues. No opaque foreign body. There is extensive atherosclerotic plaquing of the carotid bulbs. Multinodular goiter. No pneumothorax. IMPRESSION: 1. Soft tissue swelling and laceration of the premental soft tissues. No opaque foreign body, acute facial bone or dental fracture identified. 2. Multifocal odontogenic disease as detailed above with multiple large periapical cysts with areas of adjacent cortical erosion. 3. Air within the cavernous sinus and right mandibular tissues suggests iatrogenic venous air. 4. Multilevel degenerative changes of the cervical spine. The above report was generated using voice recognition software. It may contain grammatical, syntax or spelling errors. Electronically signed by: Gibran Mary M.D. 02/02/2017 4:57 PM Dictated Date/Time: 02/02/2017 4:50 PM The status of this report is Signed. Draft = Not yet reviewed or approved by Radiologist. Signed = Reviewed and approved by Radiologist. <AttendingPhy></AttendingPhy> <[facility]Phy>[facility]</FamilyPhy> < PrimaryPhy>[facility]</PrimaryPhy> <UnitNumber>[id number]</UnitNumber> < VisitNumber>[id number]</VisitNumber> <PatientName>EKATERINA KEMP JR</ PatientName> <DateOfBirth>1935</DateOfBirth> <Location>[facility]</Location> < ServiceDate>02/02/17</ServiceDate> <MNE>ESINDI</MNE> <OrderingPhy>Kamran Romeo M.D.</OrderingPhy> <OrderingPhyMNE>f rep ord dr mckeon</OrderingPhyMNE> < DictatingPhyMNE>f rep dict dr mckeon</DictatingPhyMNE> <CCListMNE>f rep ct mne</ CCListMNE> <AdmittingPhyMNE>f pt admit dr mckeon</AdmittingPhyMNE> <AttendingPhyMNE >f pt attend dr mckeon</AttendingPhyMNE> <ConsultingPhyMNE>f pt consult dr mckeon</ConsultingPhyMNE> <FamilyPhyMNE>f pt fam dr mckeon</FamilyPhyMNE> <OtherPhyMNE>f pt other dr mckeon</OtherPhyMNE> < PrimaryPhyMNE>f pt prim care dr mckeon</PrimaryPhyMNE> <ReferringPhyMNE>f pt referring dr mckeon</ReferringPhyMNE> Impression Assessment and Plan Severe dementia/aphasia/intermittent agitation-- Continue usual medications: Mirtazapine 15 mg by mouth at bedtime, melatonin 5 mg by mouth at bedtime. Status post fall with left ninth, 10th and 11th rib fractures-- Apply Lidoderm patch every morning. Continue his baseline tramadol. Glaucoma-- Continue usual outpatient medications: Lumigan, Alphagan P, Cosopt. 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 reports that he usually wears diapers. We'll need to coordinate with [place] and how aggressively this has been looked at in the past and possible consult with urology. Multifocal odontogenic disease-- Coordinate with [place] and regarding need for more aggressive treatment. Likely as an outpatient. Multinodular goiter noted on CT-- Check a TSH Level of Care Med/Surg Advanced Directives Existing Advance Directive: Yes Existing Living Will: Yes Existing Power of [place] Joiner: Yes Resuscitation Status DO NOT RESUSCITATE VTE Prophylaxis VTE Risk Assessment Done? Y/N: Yes Risk Level: Moderate Given or contraindicated: SCD's Social Service Consult [place]
[2017-02-02] MEDS: DORZOLAMIDE/TIMOLOL 22.3/6.8MG/ML 10 ML BTL OPB SCH (20:06)
[2017-02-02] MEDS: ACETAMINOPHEN 500 MG TAB PO SCH (20:08)
[2017-02-02] MEDS: TRAMADOL HCL 50 MG TAB PO SCH (20:08)
[2017-02-02 20:33] VITALS: Ht 180.3 cm; Wt 104.3 kg
[2017-02-02] MEDS ORDERED: BIMATOPROST 0.01% OP SOLN 2.5 ML BTL OP SCH (21:00)
[2017-02-02] MEDS ORDERED: MIRTAZAPINE TAB 15 MG TAB PO SCH (21:00)
[2017-02-02] MEDS ORDERED: NON-FORMULARY MEDICATION (Melatonin (Melatonin Maximum Strengt) 5 MG) PO SCH (21:00)
[2017-02-02] MEDS ORDERED: INFLUENZA ADMINISTRATION CHARGE ONE (23:00)
[2017-02-02] MEDS ORDERED: INFLUENZA VACCINE HIGH DOSE 65+ 0.5 ML SYR IM. ONE (23:00)
[2017-02-03] VITALS: O2SAT 96
[2017-02-03 08:00] VITALS: BP 149/56; PULSE 70; TEMP 36.8; O2SAT 95
[2017-02-03 08:16] LABS: BUN/CREATININE RATIO 11.2 (10-20); CALCIUM 8.8 mg/dl (8.5-10.1); CREATININE 0.86 mg/dl (0.60-1.40); MAGNESIUM 1.9 mg/dl (1.8-2.4); POTASSIUM 3.5 mmol/L (3.5-5.1)
[2017-02-03] MEDS: DORZOLAMIDE/TIMOLOL 22.3/6.8MG/ML 10 ML BTL OPB SCH (08:31)
[2017-02-03] MEDS: ACETAMINOPHEN 500 MG TAB PO SCH ×2 (08:34→13:35)
[2017-02-03] MEDS: TRAMADOL HCL 50 MG TAB PO SCH (08:43)
[2017-02-03] MEDS ORDERED: LIDODERM (LIDOCAINE) PATCH 5% TD SCH (09:00)
[2017-02-03] MEDS ORDERED: WHEAT DEXTRIN PO SCH (09:00)
--- NOTE | 2017-02-03 13:14 | Hospitalist Progress Note ---
Hospitalist Progress Note Date of Service Feb 03, 2017. (Melanie Rodriguez PA-C) Subjective Pt evaluation today including: conversation w/ family, physical exam, chart review, lab review, review of studies The patient was seen and examined this afternoon. He appears agitated. I had a long discussion with his on the phone regarding mental status baseline. See A&P. Additional Comments: ROS unobtainable due to altered mental status. (Melanie Rodriguez PA-C) Objective Vital Signs Date Time Temp Pulse Resp B/P (MAP) Pulse Ox O2 Delivery O2 Flow Rate FiO2 02/03/17 08:00 Room Air 02/03/17 08:00 36.8 70 20 149/56 (87) 95 Room Air 02/03/17 00:00 96 Room Air 02/02/17 20:33 Room Air 02/02/17 18:56 78 18 169/70 96 Room Air 02/02/17 17:00 64 18 143/65 98 Room Air 02/02/17 15:02 36.6 56 18 127/60 100 Room Air (Melanie Rodriguez PA-C) Physical Exam General Appearance: + thin, + pertinent finding (aggitated, babbling speech, nonsensical, + multiple abraisons over R arm, bottom lip is split.) Eyes: PERRL, EOMI ENT: hearing grossly normal, + pertinent finding (MM dry, no tongue injury) Neck: supple Respiratory/Chest: lungs clear, normal breath sounds, no accessory muscle use, + pertinent finding (+ lidocaine patch over lefts side ribs, no surrounding ecchymosis) Cardiovascular: regular rate, rhythm, no murmur Abdomen: normal bowel sounds, non tender, soft Extremities: non-tender, no pedal edema, no calf tenderness Neurologic/Psychiatric: alert, + pertinent finding (+agitated, +babbling speech , not oriented. ) Skin: + pertinent finding (Multiple abraisions over R extensor surface.) (Melanie Rodriguez PA-C) Laboratory Results Last 24 Hours Test 02/02/17 15:15 02/03/17 07:28 White Blood Count 8.04 K/uL Red Blood Count 4.27 M/uL Hemoglobin 13.9 g/dL Hematocrit 41.4 % Mean Corpuscular Volume 97.0 fL Mean Corpuscular Hemoglobin 32.6 pg Mean Corpuscular Hemoglobin Concent 33.6 g/dl Platelet Count 265 K/uL Mean Platelet Volume 10.4 fL Neutrophils (%) (Auto) 67.7 % Lymphocytes (%) (Auto) 23.9 % Monocytes (%) (Auto) 6.1 % Eosinophils (%) (Auto) 1.5 % Basophils (%) (Auto) 0.2 % Neutrophils # (Auto) 5.44 K/uL Lymphocytes # (Auto) 1.92 K/uL Monocytes # (Auto) 0.49 K/uL Eosinophils # (Auto) 0.12 K/uL Basophils # (Auto) 0.02 K/uL RDW Standard Deviation 48.7 fL RDW Coefficient of Variation 13.7 % Immature Granulocyte % (Auto) 0.6 % Immature Granulocyte # (Auto) 0.05 K/uL Prothrombin Time 12.0 SECONDS Prothromb Time International Ratio 1.1 Activated Partial Thromboplast Time 26.9 SECONDS Partial Thromboplastin Ratio 1.0 Sodium Level 145 mmol/L 142 mmol/L Potassium Level 4.4 mmol/L 3.5 mmol/L Chloride Level 110 mmol/L 111 mmol/L Carbon Dioxide Level 27 mmol/L 24 mmol/L Anion Gap 8.0 mmol/L 7.0 mmol/L Blood Urea Nitrogen 14 mg/dl 10 mg/dl Creatinine 1.10 mg/dl 0.86 mg/dl Est Creatinine Clear Calc Drug Dose 62.5 ml/min 80.0 ml/min Estimated GFR () 71.6 92.9 Estimated GFR (Non- 61.8 80.2 BUN/Creatinine Ratio 13.1 11.2 Random Glucose 119 mg/dl 110 mg/dl Calcium Level 8.9 mg/dl 8.8 mg/dl Troponin I < 0.015 ng/ml Thyroid Stimulating Hormone (TSH) 0.811 uIu/ml Magnesium Level 1.9 mg/dl Total Creatine Kinase 400 U/L Vitamin B12 Level 486 pg/mL (Melanie Rodriguez, ASHWIN) Assessment and Plan 81 yo M Severe dementia/aphasia/intermittent agitation-- - Continue usual medications: Mirtazapine 15 mg by mouth at bedtime, melatonin 5 mg by mouth QHS although this is not available in house. - If stays overnight will order haldol IV 5 mg prn for aggitation, but hopefully will be able to discharge back to [facility]. - was called and discussion held regarding pts baseline status. She reports over 6 years of worsening dementia. Pt was moved to [facility] in August due to not sleeping through the night, he is awake most of the time, and takes a few naps during the day. His aggitation worsens when he is not in a familiar environment. She reports he has difficulty word finding at baseline. Status post fall with left ninth, 10th and 11th rib fractures-- - Thoracic surgery not formally consulted- repeat CXR obtained, no changes on repeat identified, no pneumothorax. - Apply Lidoderm patch every morning- - Continue his baseline tramadol 25 mg Qpm and QHS, can consider increasing tramadol to 50 mg BID. Lower lip laceration - Extended through the cory. Sutures in place. - Will change diet to mechanical for now, advance as laceration heals. 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 UCx not obtained. - reports that he usually wears diapers due to incontinence. - Can follow up with urology as an outpatient. Multifocal odontogenic disease-- Coordinate with [facility] and regarding need for more aggressive treatment. Likely as an outpatient. Multinodular goiter noted on CT- - TSH is 0.811 CODE STATUS: DNR Disposition: From [facility], discharge likely today. (Melanie Rodriguez, PAEddie) Reviewed: Pt Seen/Exam by Me (Hannah Johnson MD) History See discharge summary on same DOS (Hannah Johnson MD)
--- NOTE | 2017-02-03 13:36 | DIAGNOSTIC IMAGING REPORT ---
L RIBS UNILATERAL WITH PA CHEST HISTORY: 81 years-old Male left sided rib fractures, interval change left rib fractures. Follow-up study to assess change. COMPARISON: CT abdomen and pelvis 02/02/2017, chest radiograph 02/02/2017 TECHNIQUE: Frontal view of the chest with 4 views of the left ribs FINDINGS: Cardiac silhouette is upper limits of normal. No pneumothorax, pleural effusion or focal airspace consolidation. There is mild right hemidiaphragmatic elevation. Linear subsegmental bibasilar opacities are redemonstrated suggesting atelectasis. Bones are mildly demineralized. There is no significant change identified involving the acute fractures of the left ninth, 10th and 11th ribs. IMPRESSION: 1. Subsegmental bibasilar atelectasis without acute cardiopulmonary process. No pneumothorax. 2. Unchanged appearance of the acute left 9th, 10th and 11th rib fractures The above report was generated using voice recognition software. It may contain grammatical, syntax or spelling errors. Electronically signed by: Gibran Mary M.D. 02/03/2017 1:35 PM Dictated Date/Time: 02/03/2017 1:31 PM
[2017-02-03] MEDS ORDERED: LDDP5 TD (15:15)
--- NOTE | 2017-02-03 15:23 | Discharge Instructions ---
Discharge Instructions Date of Service Feb 03, 2017. Admission Reason for Admission: Rib Fractures Discharge Discharge Diagnosis / Problem: Left sided rib fractures,lip laceration, fall Discharge Goals Goal(s): Decrease discomfort, Improve function, Increase independence, Improve disease control Activity Recommendations Activity Level: Ambulates in room, Assistance Required Therapies: Physical Therapy, Occupational Therapy Lifting Limitations: gradually increase as tolerated Exercise/Sports Limitations: gradually increase as tolerated Shower/Bathe: no limitations (with assistance) . Additional Information Patient informed of condition: Yes Advance Directives: No DNR: Yes Level of Care: Skilled Communicable Disease: No Prognosis: Stable Oxygen at (LPM): N/A Steen Catheter: No Instructions / Follow-Up Instructions / Follow-Up You were admitted to [facility] with fall and left sided rib fractures. During your stay here you were treated with pain management and other supportive care. Imaging studies which were completed include CXR which was abnormal showing fractures on the left 9th, 10th, and 11th ribs. Repeat CXR was unchanged and no pneumothorax or hemothorax CT of the head was normal. CT of the abdomen and pelvis showed enlarged prostate - although bladder scan indicated no urinary retention Encourage deep breaths and incentive spirometry if cooperative. Lip laceration was fixed in the ER. These sutures will dissolve and do not need to be removed. Medications: Lidocaine patch has been prescribed for adequate pain control Continue tramadol 25 mg BID, discuss with physician there if pain appears to be uncontrolled. May increase tramadol to 50 mg BID if needed for adequate pain relief. Appointments: Follow up with your Primary Care Provider within 24-48 hours of arrival to [facility]. Current Hospital Diet Patient's current hospital diet: Regular Diet Discharge Diet Recommended Diet: Regular Diet Diet Texture: Dental Soft (bite-sized) (until lip laceration healed) Procedures Procedures Performed: Chest and rib xrays CT Head CT Cervical SPine CT Abdomen/pelvis Pending Studies Studies pending at discharge: no Physician Orders On Transfer Special Precautions: Fall risk Dressing Changes: No dressing but wound care of lower lip laceration IV Therapy: None Vital Signs: Routine Weigh: Routine POLST Discussion: Not Applicable Laboratory Results Last 24 Hours Test 02/03/17 07:28 Sodium Level 142 mmol/L Potassium Level 3.5 mmol/L Chloride Level 111 mmol/L Carbon Dioxide Level 24 mmol/L Anion Gap 7.0 mmol/L Blood Urea Nitrogen 10 mg/dl Creatinine 0.86 mg/dl Est Creatinine Clear Calc Drug Dose 80.0 ml/min Estimated GFR () 92.9 Estimated GFR (Non- 80.2 BUN/Creatinine Ratio 11.2 Random Glucose 110 mg/dl Calcium Level 8.8 mg/dl Magnesium Level 1.9 mg/dl Total Creatine Kinase 400 U/L Vitamin B12 Level 486 pg/mL Medical Emergencies . Who to Call and When: Medical Emergencies: If at any time you feel your situation is an emergency, please call 911 immediately. . Non-Emergent Contact Non-Emergency issues call your: Primary Care Provider Call Non-Emergent contact if: you have a fever, temperature is above 100.5, your pain is not controlled, your pain is worsening, you have any medication questions other concerns with your health. Call 911 or go directly to the Emergency Department if you experience any of the following: Chest pain, chest tightness, shortness of breath, abdominal pain , lightheadedness, dizziness, gastrointestinal bleeding, or have any other concerns regarding your health. . Past History Medical & Surgical History: (1) Rib fractures (2) Dementia (3) Fall . "Provider Documentation" section prepared by Maribel Rodriguez. . Core Measure Problem Core Measures: None
--- NOTE | 2017-02-03 15:31 | Discharge Summary ---
Discharge Summary Date of Service Feb 03, 2017. (Melanie Rodriguez PA-C) Discharge Summary Admission Date: Feb 02, 2017 at 18:00 Discharge Date: Feb 03, 2017 Discharge Disposition: senior care facility ([facility]) Principal Diagnosis: Left Rib fractures Problems/Secondary Diagnoses: Severe dementia/aphasia/intermittent agitation Left rib fractures Multinodular thyroid - normal TSH BPH Multifocal odontogenic disease Glaucoma Immunizations: Have You Had Influenza Vaccine: Unknown History of Tetanus Vaccine?: Unknown History of Pneumococcal: Unknown History of Hepatitis B Vaccine: Unknown Procedures: HEAD WITHOUT CONTRAST (CT) CLINICAL HISTORY: 81 years-old Male with s/p fall; ?syncope, 81mg ASA, dementia, . Acute head injury status post fall. TECHNIQUE: Multiple axial CT images of the head were obtained without contrast. A dose lowering technique was utilized adhering to the principles of ALARA. COMPARISON: CT head 09/29/2015. FINDINGS: No acute intracranial hemorrhage, midline shift, mass, large territorial ischemia or abnormal extra-axial collection. There is moderate atrophy with ex vacuo ventriculomegaly. Background chronic microvascular ischemic changes. There are senescent calcifications of the left lentiform nucleus. The calvarium is intact. The mastoid air cells, and middle ear cavities are clear. Mild polypoid mucosal thickening of the inferior left maxillary sinus, partially imaged. IMPRESSION: 1. No acute intracranial abnormality. 2. Senescent changes as above. 3. Mild left maxillary sinus disease is partially imaged. The above report was generated using voice recognition software. It may contain grammatical, syntax or spelling errors. Electronically signed by: Gibran Mary M.D. 02/02/2017 4:31 PM Dictated Date/Time: 02/02/2017 4:28 PM The status of this report is Signed. CHEST ONE VIEW PORTABLE HISTORY: 81 years-old Male s/p fall; ?syncope acute fall with syncope. COMPARISON: Chest radiograph 09/29/2015 TECHNIQUE: Semierect AP view of the chest FINDINGS: Cardiac silhouette is upper limits of normal. There is no pneumothorax or pleural effusion. Patchy bibasilar opacities are noted suggesting atelectasis. There is mild right hemidiaphragmatic elevation. There is atherosclerosis of the aorta. Chronic blunting of the costophrenic angles is noted likely secondary to scarring. The bones are grossly intact. Degenerative changes involve the shoulders bilaterally. IMPRESSION: Patchy bibasilar opacities suggest atelectasis. No acute cardiopulmonary process is otherwise identified. The above report was generated using voice recognition software. It may contain grammatical, syntax or spelling errors. Electronically signed by: Gibran Mary M.D. 02/02/2017 3:44 PM Dictated Date/Time: 02/02/2017 3:43 PM The status of this report is Signed. CERVICAL SPINE W/O CLINICAL HISTORY: 81 years-old Male with s/p fall; ?syncope, 81mg ASA, dementia, . Acute syncopal event with neck trauma. COMPARISON: CT head and maxillofacial of same day. TECHNIQUE: Multiple axial CT images of the cervical spine were obtained without contrast. A dose lowering technique was utilized adhering to the principles of ALARA. FINDINGS: The bones are mildly demineralized. Advanced degenerative changes are seen at the C1-C2 articulation anteriorly. No acute cervical spine fracture or subluxation is identified. Mastoid air cells and middle ear cavities are clear. Multilevel advanced facet arthropathy and endplate spurring is noted. There are large posterior disc osteophyte complex formations noted at the C5-C6 and C6-C7 levels. At C5-C6 there is moderate central canal and severe bilateral foraminal narrowing. At C6-C7 there is mild central canal, and moderate bilateral foraminal stenosis. The thyroid appears heterogeneous and multinodular. Lung apices are clear. There is mild upper scrotal plaquing of the cerebral vasculature. Mild left maxillary sinus disease. Periapical cyst formation of right maxillary molars. IMPRESSION: 1. No acute cervical spine fracture or subluxation identified. 2. Multilevel severe facet arthropathy noted with large posterior disc osteophyte complex formations at C5-C6 and C6-C7 as above. 3. Right-sided odontogenic disease as above. The above report was generated using voice recognition software. It may contain grammatical, syntax or spelling errors. Electronically signed by: Gibran Mary M.D. 02/02/2017 4:49 PM Dictated Date/Time: 02/02/2017 4:31 PM The status of this report is Signed. ABD/PELVIS IV CONTRAST ONLY HISTORY: 81 years-old Male s/p fall; ?syncope, 81mg ASA, favors abdomen when palp acute generalized abdominal pain status post fall with syncopal event. COMPARISON: None available. TECHNIQUE: Multiple axial CT images of the abdomen and pelvis were obtained following the intravenous administration of 116 mL Optiray 320. A dose lowering technique was used consistent with the principals of YOLANDE. FINDINGS: Study is moderately limited secondary to motion and positioning of the patient's arms. Trace left pleural effusion. Mild dependent left basilar consolidation suggest atelectasis or pneumonia. No pneumoperitoneum. Imaged inferior cardiac chambers are mildly enlarged with coronary arterial calcifications noted. There are multiple circumscribed low attenuating lesions about the liver, largest of which measures 1.6 cm and the left hepatic lobe are nonspecific and suggests cysts. Somewhat linear low attenuating lesion of the posterior right hepatic lobe likely secondary to a cyst with associated motion artifact. Spleen and adrenal glands are within normal limits. Gallbladder is unremarkable. There is moderate diffuse pancreatic atrophy. Kidneys, ureters are unremarkable. The prostate is enlarged with trabeculation of the urinary bladder costello suggesting sequela of chronic bladder outlet obstruction. Prostate measures over 6 mm transversely. Small left hydrocele is noted with apparent left-sided varicocele and fat filled left inguinal hernia. Since of atherosclerosis of the abdominal aorta. No bulky retroperitoneal adenopathy identified. There is no bowel obstruction or focal bowel wall thickening identified. The appendix is not clearly seen. No secondary evidence of acute appendicitis. Soft tissues are unremarkable. The bones are mildly demineralized. Acute mildly displaced fractures are seen within the lateral aspects of the left ninth, 10th and 11th ribs. No compression deformity identified. Severe multilevel facet arthropathy of the lower lumbar spine. IMPRESSION: 1. Acute minimally displaced fractures of the left 9th, 10th and 11th ribs without evidence of acute solid organ injury. No pneumoperitoneum or hemoperitoneum identified. 2. Small left pleural effusion with subsegmental left lower lobe atelectasis or pneumonia. 3. Additional incidental findings as above include prostatomegaly with evidence of chronic bladder outlet obstruction, left hydrocele, left inguinal hernia with probable left varicocele. 4. Multiple low attenuating circumscribed lesions of the liver suggest cysts however are indeterminate on this single phase study. 5. Limited study as above. The above report was generated using voice recognition software. It may contain grammatical, syntax or spelling errors. Electronically signed by: Gibran Mary M.D. 02/02/2017 4:44 PM Dictated Date/Time: 02/02/2017 4:35 PM The status of this report is Signed. FACIAL BONES-MXILLOFAC WITHOUT CLINICAL HISTORY: 81 years-old Male presenting with intraoral lac, pain, r/o dental frx or facial frx. Acute intraoral laceration with concern for facial bone or dental fracture. COMPARISON STUDY: CT head and cervical spine of same day TECHNIQUE: High-resolution CT scan of the facial bones is performed. Images are reviewed in the axial, sagittal, and coronal planes. IV contrast was not administered for this examination. A dose lowering technique was utilized adhering to the principles of ALARA. CT DOSE: 1088.91 mGy.cm FINDINGS: Large periapical cysts are noted involving several teeth, notably present within the right second maxillary molar and also within the third right mandibular molar and also within the right mandibular lateral incisor as seen on image 399 of series 5 with adjacent mild cortical erosion. No acute dental fracture identified. Mastoid air cells and middle ear cavities are clear. Foci of air seen within the cavernous sinus and right mandibular tissues on image 62 of series 4. No acute facial bone fracture or dislocation is identified. Mild maxillary and ethmoid sinus disease is noted. Multilevel severe facet arthropathy of the cervical spine. Evaluation of the soft tissues demonstrates soft tissue swelling with subcutaneous emphysema in the premandibular tissues. No opaque foreign body. There is extensive atherosclerotic plaquing of the carotid bulbs. Multinodular goiter. No pneumothorax. IMPRESSION: 1. Soft tissue swelling and laceration of the premental soft tissues. No opaque foreign body, acute facial bone or dental fracture identified. 2. Multifocal odontogenic disease as detailed above with multiple large periapical cysts with areas of adjacent cortical erosion. 3. Air within the cavernous sinus and right mandibular tissues suggests iatrogenic venous air. 4. Multilevel degenerative changes of the cervical spine. The above report was generated using voice recognition software. It may contain grammatical, syntax or spelling errors. Electronically signed by: Gibran Mary M.D. 02/02/2017 4:57 PM Dictated Date/Time: 02/02/2017 4:50 PM The status of this report is Signed. L RIBS UNILATERAL WITH PA CHEST HISTORY: 81 years-old Male left sided rib fractures, interval change left rib fractures. Follow-up study to assess change. COMPARISON: CT abdomen and pelvis 02/02/2017, chest radiograph 02/02/2017 TECHNIQUE: Frontal view of the chest with 4 views of the left ribs FINDINGS: Cardiac silhouette is upper limits of normal. No pneumothorax, pleural effusion or focal airspace consolidation. There is mild right hemidiaphragmatic elevation. Linear subsegmental bibasilar opacities are redemonstrated suggesting atelectasis. Bones are mildly demineralized. There is no significant change identified involving the acute fractures of the left ninth, 10th and 11th ribs. IMPRESSION: 1. Subsegmental bibasilar atelectasis without acute cardiopulmonary process. No pneumothorax. 2. Unchanged appearance of the acute left 9th, 10th and 11th rib fractures The above report was generated using voice recognition software. It may contain grammatical, syntax or spelling errors. Electronically signed by: Gibran Mary M.D. 02/03/2017 1:35 PM Dictated Date/Time: 02/03/2017 1:31 PM The status of this report is Signed. Consultations: None (Melanie Rodriguez, ASHWIN) Medication Reconciliation New Medications: Lidocaine (Lidocaine) 1 Patch Tdsy 1 PATCH TD QAM for 30 Days, #30 PATCH Continued Medications: Acetaminophen (Tylenol) 500 Mg Tab 500 MG PO QID Bimatoprost (Lumigan) 0.01 % Karla 1 DROPS OP HS for 30 Days, #2.5 ML 3 Refills Brimonidine Tartrate (Alphagan P Oph) 0.1 % Karla 1 DROP OPR BID Dorzolamide Hcl-Timolol Maleat (Cosopt Oph) 1 Karla Karla 1 DROPS OPB BID, #10 ML 3 Refills Hydrocortisone 1% (Hydrocortisone 1%) 90 Appln/30 Gm Cr 1 APPLN TOP BID PRN for RASH Loperamide Hcl (Imodium) 2 Mg Cap 2 MG PO DIRECTED GIVE FOR LOOSE STOOLS MAX 4 CAPS/24 HRS Melatonin (Melatonin Maximum Strengt) 5 Mg Tab 5 MG PO HS Mirtazapine (Remeron) 15 Mg Tab 15 MG PO HS Tramadol (Ultram) 50 Mg Tab 25 MG PO BID 1/2 TABLET DOSE WITH EVENING MEAL & AT BEDTIME Wheat Dextrin (Benefiber Drink Mix) 1 Pow Pow 2 TSP PO DAILY Discharge Exam Subjective Pt evaluation today including: conversation w/ family, physical exam, chart review, lab review, review of studies The patient was seen and examined this afternoon. He appears agitated. I had a long discussion with his on the phone regarding mental status baseline. See A&P. Additional Comments: ROS unobtainable due to altered mental status. Objective Vital Signs Date Time Temp Pulse Resp B/P (MAP) Pulse Ox O2 Delivery O2 Flow Rate FiO2 02/03/17 08:00 Room Air 02/03/17 08:00 36.8 70 20 149/56 (87) 95 Room Air 02/03/17 00:00 96 Room Air 02/02/17 20:33 Room Air 02/02/17 18:56 78 18 169/70 96 Room Air 02/02/17 17:00 64 18 143/65 98 Room Air 02/02/17 15:02 36.6 56 18 127/60 100 Room Air Physical Exam General Appearance: + thin, + pertinent finding (aggitated, babbling speech, nonsensical, + multiple abraisons over R arm, bottom lip is split.) Eyes: PERRL, EOMI ENT: hearing grossly normal, + pertinent finding (MM dry, no tongue injury) Neck: supple Respiratory/Chest: lungs clear, normal breath sounds, no accessory muscle use, + pertinent finding (+ lidocaine patch over lefts side ribs, no surrounding ecchymosis) Cardiovascular: regular rate, rhythm, no murmur Abdomen: normal bowel sounds, non tender, soft Extremities: non-tender, no pedal edema, no calf tenderness Neurologic/Psychiatric: alert, + pertinent finding (+agitated, +babbling speech , not oriented. ) Skin: + pertinent finding (Multiple abraisions over R extensor surface.) (Melanie Rodriguez, ASHWIN) Hospital Course History of Present Illness Source: spouse, hospital records The patient is not able to contribute to his history of present illness due to his altered mental state. His reports that he has a history of severe dementia and aphasia. She reports that she was called by nursing staff there that he had an unwitnessed fall this morning. Physical Exam Vital Signs Date Time Temp Pulse Resp B/P (MAP) Pulse Ox O2 Delivery O2 Flow Rate FiO2 02/02/17 18:56 78 18 169/70 96 Room Air 02/02/17 17:00 64 18 143/65 98 Room Air 02/02/17 15:02 36.6 56 18 127/60 100 Room Air The patient is nonresponsive, has dried blood on nares and lip, lying in bed , intermittently agitated, pulling at blood pressure cuff and lines, but otherwise in no acute distress. HEENT--PERRL, EOMI, mucous membranes and oropharynx dry. Blood as noted above. Neck--supple, no JVD or bruits, thyroid normal, trachea midline, no adenopathy. Heart--tachycardic and regular, no murmurs, rubs or gallops. Lungs--diminished throughout, no respiratory distress, no accessory muscle use. Abdomen--normal bowel sounds and soft, nontender and nondistended, no hernias or masses, no organomegaly. Extremities--no cyanosis, clubbing or edema. There are good distal pulses b/l. Dermatologic--normal skin turgor, normal color, warm and dry, no abnormal lymph nodes, no rash. Neurologic/rheumatologic--cranial nerves II through XII grossly intact, moves all extremities equally well. Psychiatric--nonresponsive, severe dementia. Hospital Course: 81 yo M Severe dementia/aphasia/intermittent agitation-- - Continue usual medications: Mirtazapine 15 mg by mouth at bedtime, melatonin 5 mg by mouth QHS although this is not available in house. - If stays overnight will order haldol IV 5 mg prn for aggitation, but hopefully will be able to discharge back to [facility]. - was called and discussion held regarding pts baseline status. She reports over 6 years of worsening dementia. Pt was moved to [facility] in August due to not sleeping through the night, he is awake most of the time, and takes a few naps during the day. His aggitation worsens when he is not in a familiar environment. She reports he has difficulty word finding at baseline. Status post fall with left ninth, 10th and 11th rib fractures-- - Thoracic surgery not formally consulted- repeat CXR obtained, no changes on repeat identified, no pneumothorax. - Apply Lidoderm patch every morning- Rx provided at time of dc - Continue his baseline tramadol 25 mg Qpm and QHS, can consider increasing tramadol to 50 mg BID. Lower lip laceration - Extended through the cory. Sutures in place. - Will change diet to mechanical for now, advance as laceration heals. Glaucoma- - Continue usual outpatient medications: Lumigan, Alphagan P, Cosopt BPH without outlet obstruction - Reviewed on CT - will check bladder scan and make sure not retaining- only 88mL on bladder scan . UCx not obtained. - reports that he usually wears diapers due to incontinence. - Can follow up with urology as an outpatient. Multifocal odontogenic disease-- Coordinate with [facility] and regarding need for more aggressive treatment. Likely as an outpatient. Multinodular goiter noted on CT- - TSH is 0.811 CODE STATUS: DNR Disposition: From [facility], discharge today. Total Time Spent: Greater than 30 minutes This includes examination of the patient, discharge planning, medication reconciliation, and communication with other providers. (Melanie Rodriguez, ASHWIN) Discharge Instructions Please refer to the electronic Patient Visit Report (Discharge Instructions) for additional information. (Melanie Rodriguez, ASHWIN) Follow-Up Follow up with your Primary Care Provider at [facility] within 24-48 hours. (Melanie Rodriguez, ASHWIN) Additional Copies To [facility] Reviewed: Pt Seen/Exam by Me (Hannah Johnson MD) History Physician [employer] Supplier Supervision Note: I interviewed and examined the patient. Discussed with MONET Rodriguez and agree with findings and plan as documented in the note. Any exceptions or clarifications are listed here: Pt with aphasia and answered questions. Aid reports he had agitation significnatly with turning him to get him cleaned up which may indicate pain when turned on left side where rib fractures are. Otherwise vitals good, labs good, repeat CXR/Rib series no PTX or worsening effusion suggestive of hemothorax. Stable for dc to home Vitals reviewed NAD, sleeping but hten wakes up and nonverbal Bottom lip with sutured lac crossing cory, mild edema of lower lip RRR no mgr CTAB no wcr ABd +BS soft NT ND Ext no edema LEs, right forearm with superficial abrasions and small hematoma 81 yo male with severe dementia, here with likely mechanical fall unwitnessed, with resulting left sided multiple rib fractures. Stable, pain control as per PA note, PT/OT, return to SNF dementia unit which will suit him better to be in familiar surroundings -no need to check UA as difficult to tell is has any symptoms of UTI and would likely be treating asymptomatic bacteriuria which in itself leads to potential injury Documented By: Hannah Johnson (Hannah Johnson MD)
[2017-02-03] MEDS ORDERED: TRAM-10 PO (16:07)
[2017-02-03 16:22] VITALS: BP 149/56; PULSE 70; TEMP 36.8; O2SAT 95
== END 2017-02-03 18:51 | DRG 184 ==
LOC: EDBD 14:48 → C.EDC 14:50 → C.MS2W 18:00 → ENRESERV 18:43
PROVIDERS: ADMIT Hospitalist; ATTEND Internal Medicine
PROC: 0CQ1XZZ Repair Lower Lip, External Approach (ICD-10-PCS; principal; 2017-02-02)
DX: S22.42XA Multiple fractures of ribs, left side, initial encounter for closed fracture (principal); J90 Pleural effusion, not elsewhere classified; R47.01 Aphasia; S01.511A Laceration without foreign body of lip, initial encounter; F03.90 Unspecified dementia, unspecified severity, without behavioral disturbance, psychotic disturbance, mood disturbance, and anxiety; W19.XXXA Unspecified fall, initial encounter; Y92.129 Unspecified place in nursing home as the place of occurrence of the external cause; N40.1 Benign prostatic hyperplasia with lower urinary tract symptoms; Z66 Do not resuscitate; E04.2 Nontoxic multinodular goiter; K04.90 Unspecified diseases of pulp and periapical tissues; H40.9 Unspecified glaucoma

== ENCOUNTER → 2017-02-09 | Outpatient (CLI) | payer BC ==
[~2017-02-09] MED LIST changes: +ACET-1256 PO; -ASPI81TA28 PO; +BRIM0.1S OPR; -FINA5TAB PO; +HYDCR1CL TOP; +IMD/2 PO; +LDDP5 TD; -LISI20TA3 PO; +MELATAB2 PO; +MIRT15TA PO; -RMNER16 PO; -SILO4CAP PO; +TRAM-10 PO; +WHEAPOW PO
== END | disposition home or self-care (01) ==
LOC: C.LABSPEC 15:33 → C.LABFOXAC 15:34
PROVIDERS: ATTEND Internal Medicine
DX: A04.72 Enterocolitis due to Clostridium difficile, not specified as recurrent (principal)